=== PATIENT | female | born 1980 | race African-American/Black ===

== ENCOUNTER 2017-03-28 16:45 | Emergency (ER) | payer MEDICAID ==
[~2017-03-28] VITALS: Ht 170.2 cm; Wt 69.4 kg
[2017-03-28 18:54] VITALS: BP 18/86
== END 2017-03-28 19:18 | disposition home or self-care (01) ==
LOC: ER 16:46
DX: G56.01 Carpal tunnel syndrome, right upper limb (principal)
CPT/HCPCS: 73130